=== PATIENT | female | born 1955 | race Two or more races ===

== ENCOUNTER 2025-04-11 01:28 | Emergency (ER) | payer MEDICARE, SELFPAY ==
[2025-04-11 01:28] VITALS: BP 126/63; PULSE 70; RESP 18; TEMP 37.1; O2SAT 100; BMI 28.7
--- NOTE | 2025-04-11 01:47 | EDNOTE_ITS ---
ED Abdominal Pain RME/HPI General Chief Complaint: Abdominal Pain Stated complaint: ABD PAIN X2 DAYS WITH N/V Time seen by provider: 04/11/25 02:04 Arrival date/time: 04/11/25 01:28 RME / HPI RME / HPI narrative: This section includes all my notes and documentations, including HPI, PE, and ED course. Jabier Lala MD HPI: 69yo female presents to the ED for a chief complaint of epigastric pain for the last few days. No radiation or migration. Patient reports associated nausea and vomiting. Patient denies any fever, chills, dysuria or any other associated symptoms. PSH includes and hysterectomy. No other complaints reported. ROS: All negative except as documented in HPI. Physical Exam: General: Alert and oriented. Appearance of severe malaise noted. Eyes: Conjunctivae and lids clear. ENT: No nasal congestion. Neck: Supple. Heart: RRR. Lungs: No respiratory distress. Good air movement. No rhonchi, wheezing, rales. Abdomen: Soft with epigastric tenderness. Normal bowel sounds. No distension. No rebound or guarding. Back: No CVA tenderness. Skin: Warm and dry. Neuro: Alert and oriented X 3. I reviewed all diagnostic test results. My review of the US gallbladder report is unremarkable. My review of the CT abdomen report is no acute findings. Blood tests are unremarkable except for WBC 13.6. UA showed positive leukocyte esterase and 70 WBC. COVID and Influenza are negative. At this point, diagnoses include stomach ulcer and UTI. Treatment here included Pepcid, NS, Morphine, Zofran, Pantoprazole, and Rocephin. Significant improvement noted. Recommend outpatient treatment. Based on my best medical judgment, made decision no further evaluation or treatment indicated at this time. Patient understands and agrees to the discharge instructions customized and printed, see below. Discharge instructions from Dr. Lala: ?After evaluation, your symptoms are due to stomach ulcer (see attached handout). There is no emergency such as appendicitis needing emergent surgery. ?To help heal the ulcer, take Omeprazole 40 mg every morning and Famotidine 40 mg at bedtime for a month. ?Zofran for nausea/vomiting. Clear liquid diet for 24 hours. Then slowly advance diet as tolerated. ?Avoid food and beverages that can trigger and worsen ulcers. See attached handout. --For UTI, take cefdinir to kill the germs in the urine. ?See a private doctor on 04/14/2025 for recheck and further care. Ask to review all test results and official radiology reports, to make sure you receive all necessary follow-ups and monitoring, including final urine culture results. To make sure there is no serious intra-abdominal condition, ask for help with more investigation not available here in the ER. Such as EGD or scoping the stomach, colonoscopy or scoping the colon, and referral to see nursing program coordinator. ?Seek immediate medical care with worsening or with any concerns. Jabier Lala MD Related Data Home Medications ?Medication ?Instructions ?Recorded ?Confirmed Metformin Hcl 500 mg PO BID ##60 09/29/16 Previous Rx's ?Medication ?Instructions ?Recorded cefdinir 300 mg capsule 300 mg PO BID #14 caps 04/11 famotidine 40 mg tablet 40 mg PO .bedtime #30 tabs 0 04/11/25 omeprazole 40 mg capsule,delayed 40 mg PO QDAY #30 cap s 04/11/25 release ondansetron 4 mg disintegrating 4 mg PO TID PRN nausea and 04/11/25 tablet vomiting 30 days #10 tabs Allergies Allergy/AdvReac Type Severity Reaction Status Date / Time No Known Allergies Allergy Unknown Uncoded 04/11/25 01:28 Review of Systems Review of Systems Systems Reviewed: All systems reviewed, normal except as documented Past Medical History Past Medical History CARDIAC: Positive Hypertension; Negative Congestive Heart Failure RESPIRATORY: Negative Chronic Obstructive Pulmonary Disease (COPD) GENITOURINARY: Negative Renal Disease ENT: Positive History of ENT Problems (wears eyeglasses) ENDOCRINE: Positive Diabetes Mellitus Type 2 and Hypothyroidism; Negative Diabetes Mellitus Type 1 Surgical History SURGICAL: Positive Hysterectomy and Section Social History SMOKING STATUS: Never smoker ED Exam Narrative Physical exam: As noted in HPI. Course Quality Measures none Orders Category Date Time Status Bedside COVID-19 Antigen Test NOW Care 04/11/25 02:34 Active Bedside Influenza A&B Antigen Test NOW Care 04/11/25 02:34 Completed Saline [Insert IV] NOW Care 04/11/25 02:[address] abdomen pelvis wo con Stat Exams 04/11/25 01:48 Taken US gall bladder Stat Exams 04/11/25 01:48 Taken Amylase Stat Lab 04/11/25 02:47 Completed Bilirubin,Direct Stat Lab 04/11/25 02:47 Completed CBC Stat Lab 04/11/25 02:47 Completed CMP [Comprehensive Metabolic Panel] Stat Lab 04/11/25 02:47 Completed Lipase Stat Lab 04/11/25 02:47 Completed Magnesium Stat Lab 04/11/25 02:47 Completed UA, C/S IF [Urinalysis, C/S if Indicated] Stat Lab 04/11/25 03:00 Completed Urine Culture Stat Lab 04/11/25 04:30 Received Famotidine Inj [Pepcid Inj] Med 04/11/25 02:34 Discontinued 20 mg IVP X1 ONE Morphine Inj Med 04/11/25 02:34 Discontinued 2 mg IVP X1 ONE Ondansetron Inj [Zofran Inj] Med 04/11/25 02:34 Discontinued 4 mg IV X1 ONE Pantoprazole Inj [Protonix Inj] Med 04/11/25 02:34 Discontinued 40 mg IVP X1 ONE Sodium Chloride 0.9% 1000 ml [Ns] 1,000 ml Med 04/11/25 02:34 Discontinued IV 999 mls/hr cefTRIAXone/D5w 1gm IV premix [Rocephin/D5w 1gm IV Med 04/11/25 04:16 Discontinued premix] 1 gm in 50 ml IV X1 Vital Signs Vital signs: Vital Signs Temperature 98.7 F 04/11/25 01:28 Pulse Rate 70 04/11/25 01:28 Respiratory Rate 18 04/11/25 01:28 Blood Pressure 126/63 04/11/25 01:28 Pulse Oximetry (%) 100 04/11/25 01:28 Oxygen Delivery Method Room Air 04/11/25 01:28 Abdominal Pain MDM MDM Narrative MDM Narrative:: 69yo female presents to the ED for a chief complaint of epigastric pain for the last few days. No radiation or migration. Patient reports associated nausea and vomiting. Patient denies any fever, chills, dysuria or any other associated symptoms. PSH includes and hysterectomy. No other complaints reported. Patient data External records reviewed:: [facility] previous records (Per chart review, patient has no previous ED visits or admissions to this facility.) Clinical information provided by:: patient Social determinants that could affect healthcare access:: none Patient has the following chronic illnesses:: HTN, DM How is presenting disease/condition affected by chronic disease/condition?: uneffected by Evaluation data The following diagnostics were reviewed and interpreted by me:: lab results, radiology exam(s) and EKG tracing(s) Lab and/or radiology exams considered but not ordered:: none Interpretation Summary: I reviewed all diagnostic test results. My review of the US gallbladder report is unremarkable. My review of the CT abdomen report is no acute findings. Blood tests are unremarkable except for WBC 13.6. UA showed positive leukocyte esterase and 70 WBC. COVID and Influenza are negative. Medications / Prescriptions Medications or Prescriptions considered but not ordered:: none Medication administrations:: Medication Administration History Discontinued Medications Famotidine (Famotidine Inj 10 Mg/Ml Vial 2 Ml) 20 mg IVP X1 ONE Stop: 04/11/25 02:35 Last Admin: 04/11/25 03:32 Dose: 20 mg Documented By: BD Sodium Chloride (Ns) 1,000 mls @ 999 mls/hr IV .Q1H1M ONE Stop: 04/11/25 03:34 Last Infusion: 04/11/25 04:27 Dose: Infused Documented By: Admin: 04/11/25 03:31 Dose: 999 mls/hr Documented By: BD Ceftriaxone Sodium/Dextrose (Rocephin/D5w 1gm Iv Premix) 1 gm in 50 mls @ 100 mls/hr IV X1 ONE Stop: 04/11/25 04:45 Last Admin: 04/11/25 04:32 Dose: 100 mls/hr Documented By: CP Morphine Sulfate (Morphine Sulf Inj 10 Mg/Ml Vial) 2 mg IVP X1 ONE Stop: 04/11/25 02:35 Last Admin: 04/11/25 03:31 Dose: 2 mg Documented By: BD Ondansetron HCl (Ondansetron Inj 2 Mg/Ml Inj 2 Ml) 4 mg IV X1 ONE; Protocol Stop: 04/11/25 02:35 Last Admin: 04/11/25 03:32 Dose: 4 mg Documented By: BD Pantoprazole Sodium (Pantoprazole Inj 40 Mg Vial) 40 mg IVP X1 ONE Stop: 04/11/25 02:35 Last Admin: 04/11/25 03:32 Dose: 40 mg Documented By: BD Pepcid, NS, Morphine, Zofran, Pantoprazole, Rocephin Consultations Consultation(s) initiated? (list below): No Diagnosis Differential diagnosis abdominal pain: acute appendicitis, calculus of kidney, constipation, diverticulitis, endometriosis, gastroenteritis, pancreatitis, small bowel obstruction and other (GERD, PUD, gastritis, biliary colic) Most likely diagnosis given after review of the tests above:: Stomach ulcer, UTI Admission Indicated Admission indicated?: not indicated Explain why admission is indicated or not indicated:: With significant improvement, there was no indication for admission. Admission Request Was there a request for admission?: No Disposition Plan Disposition Plan: Discharge Discharge Attestation Discharge Attestation: The patient and all family members were given an opportunity to ask questions and understood the discharge instructions. Discharge instructions specifically effects, indications for sooner follow up or return to the emergency department, and the expected course of current diagnosis. Patient condition: Stable Discharge Plan Plan Patient Disposition: HOME (Self Care) Prescriptions/Referrals Prescriptions/Med Rec: New famotidine 40 mg tablet 40 mg PO .bedtime Qty: 30 0RF omeprazole 40 mg capsule,delayed release(DR/EC) 40 mg PO QDAY Qty: 30 0RF ondansetron 4 mg tablet,disintegrating 4 mg PO TID PRN (Reason: nausea and vomiting) 30 Days Qty: 10 0RF cefdinir 300 mg capsule 300 mg PO BID Qty: 14 0RF No Action Metformin Hcl 500 MG tablet 500 mg PO BID Qty: 60 Problem List Clinical Impression: Stomach ulcer, UTI (urinary tract infection) Patient/Caregiver Discharge Instructions Discharge Activity: activity as tolerated Education Materials: ED PEPTIC ULCER vs GASTRITIS, ED CYSTITIS Female Adult Additional Instructions: Discharge instructions from Dr. Lala: ?After evaluation, your symptoms are due to stomach ulcer (see attached handout).? There is no emergency such as appendicitis needing emergent surgery. ?To help heal the ulcer, take Omeprazole 40 mg every morning and Famotidine 40 mg at bedtime for a month. ?Zofran for nausea/vomiting.? Clear liquid diet for 24 hours.? Then slowly advance diet as tolerated. ?Avoid food and beverages that can trigger and worsen ulcers.? See attached handout. --For UTI, take cefdinir to kill the germs in the urine. ?See a private doctor on 04/14/2025 for recheck and further care. Ask to review all test results and official radiology reports, to make sure you receive all necessary follow-ups and monitoring, including final urine culture results. To make sure there is no serious intra-abdominal condition, ask for help with more investigation not available here in the ER.? Such as EGD or scoping the stomach, colonoscopy or scoping the colon, and referral to see nursing program coordinator. ?Seek immediate medical care with worsening or with any concerns. Instrucciones de annette del Dr. Lala: ?Despu?s de la evaluaci?n, paulette s?ntomas se deben a vanessa ?lcera estomacal (kash folleto adjunto). No existe ninguna emergencia, jazmin vanessa apendicitis, que requiera cirug?a urgente. ?Para ayudar a cicatrizar la ?lcera, tome omeprazol 40 mg todas las ma?anas y famotidina 40 mg antes de acostarse destini un mes. ?Zofran para n?useas y v?mitos. Dieta l?quida destini 24 horas. Luego, aumente gradualmente la dieta seg?n la tolerancia. ?Evite alimentos y bebidas que puedan desencadenar y empeorar las ?lceras. Kash folleto adjunto. ?Para vanessa infecci?n urinaria, tome cefdinir para eliminar los g?rmenes en la orina. ?Consulte con un m?dico particular el 14/04/2025 para vanessa nueva revisi?n y atenci?n adicional. Solicite la revisi?n de todos los resultados de las pruebas y los informes radiol?gicos oficiales para asegurarse de recibir todos los controles y monitoreos necesarios, incluidos los resultados finales del urocultivo. Para asegurarse de que no haya vanessa afecci?n intraabdominal grave, solicite ayuda con otras pruebas que no est?n disponibles en urgencias, jazmin vanessa endoscopia estomacal (EGD) o vanessa endoscopia g?strica, vanessa colonoscopia o vanessa endoscopia de colon, y derivaci?n a un gastroenter?logo. ?Busque atenci?n m?dica inmediata si presenta empeoramiento o si tiene alguna inquietud. Print Language: [employer] Stand Alone Forms: Olivia Award Info., Patient Portal Info Letter
--- NOTE | 2025-04-11 01:48 | XR_ITS ---
Examination: CT abdomen and pelvis without contrast. Coronal 3-D reconstructions. Sagittal 2-D reconstructions. Date and time of exam:April 11, 2025 at 0237 hours INDICATIONS: Onset abdominal pain today COMPARISON: June 06, 2024 CTDI: vol (mGy): 8.69 DLP: (mGycm): 430 Technique: Axial images of the abdomen have been obtained, 3 mm slice thickness Intravenous contrast material has not been administered. Low dose protocols were performed. One or more of the following dose reduction techniques were used; automated exposure control, adjustment of the mA and/or KV according to patient size, use of iterative reconstruction technique. Findings: Multiple subcentimeter pulmonary nodules No focal liver or splenic lesions No gallstones No pancreatic mass No renal or ureteral calculi, no hydronephrosis Very minimal probable inflammatory change about the superior mesenteric artery Aortic calcification no aneurysmal dilatation No bowel obstruction No pericecal inflammatory changes No diverticulitis Urinary bladder intact Advanced degenerative disc disease L4-L5, L5-S1 IMPRESSION: Multiple noncalcified pulmonary nodules, recommend CT chest without contrast follow-up Normal appendix No bowel obstruction, no diverticulitis
--- NOTE | 2025-04-11 01:48 | XR_ITS ---
Examination: Abdomen sonogram, Limited Date and time of exam: April 11, 2025 0206 hours INDICATIONS: Abdominal pain beginning 2 days ago with nausea vomiting Technique: Real-time walker scale transabdominal sonographic images of the upper abdomen obtained. Findings: Normal gallbladder Normal common bile duct 0.3 cm Pancreatic head 2.0 cm Liver 12.6 cm no focal liver lesions Normal hepatopedal portal venous flow Patent IVC IMPRESSION: Negative study
[2025-04-11 03:02] LABS: Basophils % (Auto) 0 % (0-2.5); Eosinophils % (Auto) 0 % (0-10); Hematocrit 37.7 % (36.0-46.0); Hemoglobin 13.6 g/dL (12.0-16.0); Immature Granulocytes % (Auto) 0 % (0-0); Immature Granulocytes Auto 0.05 Thou/mm3 (0.00-0.00); Lymphocytes # (Auto) 1.6 Thou/mm3 (1.0-4.8); Lymphocytes % (Auto) 12 % (10-50); Mean Corpuscular HGB Conc 36.1 g/dl (31.0-37.0); Mean Corpuscular Hemoglobin 30.5 pg (25.0-35.0); Mean Corpuscular Volume 85 fL (80-100); Monocytes # (Auto) 0.6 Thou/mm3 (0.0-0.8); Monocytes % (Auto) 4 % (0-12); Neutrophils # (Auto) 11.3 Thou/mm3 (1.8-7.7); Neutrophils % (Auto) 83 % (37-80); Nucleated Red Blood Cell % 0 /100 WBC (0); Platelet Count 266 Thou/mm3 (140-440); Red Blood Count 4.46 Miln/mm3 (4.00-5.20); White Blood Count 13.6 Thou/mm3 (3.6-11.0)
[2025-04-11 03:04] LABS: Collection Type, Urine Clean Catch
[2025-04-11 03:19] LABS: Bilirubin,Urine Negative (Negative); Blood,Urine Negative (Negative); Clarity,Urine Turbid (Clear/Hazy); Color,Urine Yellow (Lt Yel-Yel); Culture Indicated,Urine Contaminated; Glucose, Urine Negative (Negative); Ketones,Urine Negative (Negative); Leukocyte Esterase,Urine Positive (Negative); Nitrite,Urine Negative (Negative); PH,Urine 5.5 (5.0-7.0); Protein,Urine Trace (Neg - Trace); RBC,Urine 5 /hpf (0-3); Specific Gravity,Urine 1.019 (1.001-1.035); Squamous Epithelial Cell,Urine 12 /hpf (0-5); Urobilinogen,Urine Negative mg/dL (0.0-1.0); WBC,Urine 70 /hpf (0-5)
[2025-04-11 03:21] LABS: Alanine Aminotransferase 16 U/L (10-49); Albumin, Serum 4.2 gm/dL (3.4-4.8); Albumin/Globulin Ratio 1.4 (1.2-2.2); Alkaline Phosphatase 113 U/L (46-116); Amylase 59 U/L (30-118); Anion Gap 10 (7-16); Aspartate Amino Transferase 22 U/L (0-34); BUN/Creatinine Ratio 16 Ratio (12-20); Bilirubin,Direct 0.1 mg/dL (0.0-0.3); Bilirubin,Total 0.6 mg/dL (0.3-1.2); Blood Urea Nitrogen 16 mg/dL (9-23); Carbon Dioxide 27.2 mMol/L (20.0-31.0); Chloride 102 mMol/L (98-107); Estimated Creatinine Clearance 48.4 mL/min (>60); Glucose 147 mg/dL (74-106); Lipase 33 U/L (12-53); Magnesium 1.8 mg/dL (1.6-2.6); Osmolality,Calculated 281 (275-295); Potassium 3.8 mMol/L (3.4-5.1); Sodium 139 mMol/L (136-145); Total Protein 7.2 gm/dL (5.7-8.2); eGFR > 60 See Note
[2025-04-11] MEDS: SODIUM CHLORIDE 0.9% 1000 ML 1,000 ML 999 ML IV (03:31)
[2025-04-11] MEDS: MORPHINE SULF INJ 10 MG/ML VIAL 2 MG IVP (03:31)
[2025-04-11] MEDS: PANTOPRAZOLE INJ 40 MG VIAL IVP (03:32)
[2025-04-11] MEDS: ONDANSETRON INJ 2 MG/ML INJ 2 ML 4 MG IV (03:32)
[2025-04-11] MEDS: FAMOTIDINE INJ 10 MG/ML VIAL 2 ML 20 MG IVP (03:32)
[2025-04-11 03:38] VITALS: BP 165/70; PULSE 66; RESP 12; TEMP 36.4; O2SAT 97
--- NOTE | 2025-04-11 04:00 | PRELIM_ITS ---
Gallbladder ultrasound. April 11, 2025 at 0206 hours. Clinical history: RUQ tenderness. Comparison: No prior study is available for comparison. Findings: The visualized liver is normal in echogenicity without mass or ductal dilatation. The main portal and hepatic veins are patent with flow. No gallbladder calculus, wall thickening or pericholecystic fluid is identified. The common duct is normal in caliber at 3 mm. The pancreas is unremarkable to the extent visualized. No free fluid is demonstrated on the submitted images. The inferior vena cava is unremarkable to the extent visualized. Impression: No sonographic evidence of cholelithiasis, acute cholecystitis or biliary obstruction. Report Electronically Signed By: Theron Child 04/11/2025 3:59:48 AM [EST]
--- NOTE | 2025-04-11 04:28 | PRELIM_ITS ---
CT scan of the abdomen and pelvis without intravenous contrast (axial sections with sagittal and coronal reformats) April 11, 2025 0237 hours Clinical History: ABD PAIN Comparison: 04/11/2025 Findings: Small nodular is noted in the right lower lobe measuring 4mm. Subpleural nodule is noted in the right middle lobe (image 4, series 8). A 4.5mm nodule is noted in the periphery of the left lower lobe. A 3.5mm perifissural nodule in the right middle lobe. The liver, gallbladder, pancreas, spleen, kidneys and adrenals are unremarkable on this noncontrast study. No evidence of bowel obstruction. The appendix is within normal limits (images 61-63, series 4). There are occasional colonic diverticula without evidence of diverticulitis. There is no mesenteric or retroperitoneal adenopathy. There is mild fat stranding around the proximal celiac and superior mesenteric artery. The urinary bladder is incompletely distended. The uterus appears small, may be related to subtotal hysterectomy. There is no free fluid or free air. Small hemangioma in the L3 vertebral body. Mild degenerative changes are identified in the spine. There is minimal anterolisthesis of L4 on L5. Impression: No evidence of bowel obstruction, free air or abscess. Mild fat stranding around the proximal celiac and superior mesenteric artery, may be nonspecific. The possibility of vasculitis cannot be excluded. Recommend clinical correlation. Multiple pulmonary nodules. Recommend CT follow-up at 6-12 months. Other findings as described above. Report Electronically Signed By: Theron Child 04/11/2025 4:27:33 AM [EST]
[2025-04-11] MEDS: cefTRIAXone/D5w 1gm IV premix 1 GM/50 ML BAG IV (04:32)
[2025-04-11 05:00] VITALS: BP 164/65; PULSE 88; RESP 16; TEMP 36.9; O2SAT 95
== END 2025-04-11 05:01 | disposition home or self-care (01) ==
LOC: SERX 04:50
PROVIDERS: Emergency Provider Emergency Medicine; PCP Physician Assistant
DX: K25.9 Gastric ulcer, unspecified as acute or chronic, without hemorrhage or perforation (principal); N39.0 Urinary tract infection, site not specified
CPT/HCPCS: 36415; 74176; 76705; 80053; 81001; 82150; 82248; 83690; 83735; 85025; 87086; 87400; 87811; 96361; 96374; 96375; 99284; J0696; J2270; J2405; J2470; J3490; J7030

== ENCOUNTER → 2025-08-20 | Outpatient (CLI) | payer MEDICARE, SELFPAY ==
--- NOTE | 2025-08-20 10:00 | XR_ITS ---
Examination: Screening digital mammography, bilateral Computer aided detection 3-D breast Tomosynthesis, bilateral Date and time of exam: August 20, 2025 1013 hours, compared to mammograms dating to April 01, 2019 Indication: Screening Technique: Nonmagnified MLO, CC views of the breasts to been obtained, reconstructed from 3-D Tomosynthesis images. R2 computer aided detection program utilized for evaluation of suspicious masses and/or abnormal calcifications. 3-D Tomosynthesis images obtained. Findings: Scattered areas of fibroglandular density. Dystrophic calcification upper right breast mid depth No interval suspicious masses Impression: BI-RADS category II: Benign Findings. Recommend 1 year follow-up mammogram.
== END | disposition home or self-care (01) ==
PROVIDERS: PCP Physician Assistant; Referring Provider Physician Assistant; Visit Provider Physician Assistant
DX: Z12.31 Encounter for screening mammogram for malignant neoplasm of breast (principal); R92.323 Mammographic fibroglandular density, bilateral breasts; R92.1 Mammographic calcification found on diagnostic imaging of breast
CPT/HCPCS: 77063; 77067

== ENCOUNTER → 2025-10-03 | Outpatient (CLI) | payer MEDICARE, SELFPAY ==
--- NOTE | 2025-10-03 14:00 | XR_ITS ---
Examination: Duplex scan of the lower extremity, unilateral left Date and time of exam: 10/03/2025 at 1:48 p.m. INDICATION: Left lower extremity swelling and pain, intermittent for 1 year COMPARISON: None Technique: Duplex scan of the extremity veins using B-mode/grayscale imaging and Doppler spectral analysis and color flow Attention is directed to internal echogenicity, compression and augmentation involving these veins, color flow assessment, spectral analysis Findings: Major deep venous structures in the extremity demonstrate normal course and caliber. There is no evidence of deep vein thrombosis. Normal color flow and spectral analysis Impression: Negative for DVT or superficial thrombophlebitis in the left lower extremity.
== END | disposition home or self-care (01) ==
LOC: CDIM 13:38
PROVIDERS: Referring Provider Physician Assistant; Visit Provider Physician Assistant
DX: I83.892 Varicose veins of left lower extremity with other complications (principal)
CPT/HCPCS: 93971

== ENCOUNTER 2025-11-04 08:55 | Day surgery (SDC) | payer MEDICARE, SELFPAY ==
[2025-11-03 12:37] VITALS: BMI 28.5
[2025-11-04] VITALS (7 sets, daily range): BP systolic 137–179; BP diastolic 66–84; PULSE 61–71; RESP 12–23; TEMP 36.1–37; O2SAT 94–100; BMI 28.9
[2025-11-04] MEDS: RINGERS LACTATED 1000 ML 1,000 ML 125 ML IV (10:54)
[2025-11-04] MEDS: BENZOCAINE 20% (Hurricaine) SPRAY 1 DOSE TOP (10:54)
[2025-11-04] MEDS: fentaNYL CIT INJ 50 mCg/ML AMP 2ML (ASD USE ONLY) IVP (10:57)
[2025-11-04] MEDS: MIDAZOLAM INJ 1 MG/ML VIAL 2 ML (ASD USE ONLY) 2 MG IVP (10:57)
== END 2025-11-04 12:01 | disposition home or self-care (01) ==
PROVIDERS: PCP Physician Assistant; Referring Provider Internal Medicine Gastroenterology; Visit Provider Internal Medicine Gastroenterology
PROC: (CPT 43239; principal; 2025-11-04 10:45)
DX: K29.50 Unspecified chronic gastritis without bleeding (principal); K44.9 Diaphragmatic hernia without obstruction or gangrene; E03.9 Hypothyroidism, unspecified; E11.9 Type 2 diabetes mellitus without complications; I10 Essential (primary) hypertension
CPT/HCPCS: 43239; A4649; J1200; J2250; J3010; J7120; A9270

== ENCOUNTER 2025-11-06 07:00 | Day surgery (SDC) | payer MEDICARE, SELFPAY ==
[2025-11-05 10:08] VITALS: BMI 28.5
[2025-11-06] VITALS (8 sets, daily range): BP systolic 119–162; BP diastolic 51–70; PULSE 62–83; RESP 12–18; TEMP 36.3; O2SAT 94–100; BMI 28.0
[2025-11-06] MEDS: fentaNYL CIT INJ 50 mCg/ML AMP 2ML (ASD USE ONLY) IVP (08:43)
[2025-11-06] MEDS: MIDAZOLAM INJ 1 MG/ML VIAL 2 ML (ASD USE ONLY) 2 MG IVP (08:43)
[2025-11-06] MEDS: RINGERS LACTATED 500 ML 500 ML 20 ML IV (08:48)
--- NOTE | 2025-11-06 09:20 | SUR.PHASEII ---
0840 PATIENT INTO RECOVERY ROOM WITH NO DISTRESS NOTED, V/S STABLE, PATIENT ABLE TO REPOSITION SELF FOR COMFORT. PATIENT PASSING LARGE AMOUNTS OF FLATUS. REPORT RECEIVED FROM CRISTINE ROCHA. [id number] PATIENT V/S REMAIN STABLE, PATIENT DRINKING WATER, PATIENT DENIES PAIN OR NAUSEA AT THIS TIME.
--- NOTE | 2025-11-06 09:36 | SUR.PHASEII ---
0930 PATIENT AMBULATES TO BATHROOM WITH MINIMAL ASSISTANCE NEEDED. PATIENT CONTINUES TO PASS FLATUS. 0935 DISCHARGE INSTRUCTIONS GIVEN BY THONG RN/CERTIFIED MANAGER PERFORMANCE TO PATIENT AND PATIENT'S ADINA.
== END 2025-11-06 09:45 | disposition home or self-care (01) ==
PROVIDERS: PCP Physician Assistant; Referring Provider Internal Medicine Gastroenterology; Visit Provider Internal Medicine Gastroenterology
PROC: 0DBE8ZX Excision of Large Intestine, Via Natural or Artificial Opening Endoscopic, Diagnostic (ICD-10-PCS; CPT 45380; principal; 2025-11-06 08:15)
DX: K52.9 Noninfective gastroenteritis and colitis, unspecified (principal); K64.9 Unspecified hemorrhoids; K57.30 Diverticulosis of large intestine without perforation or abscess without bleeding; I10 Essential (primary) hypertension; E11.9 Type 2 diabetes mellitus without complications; E03.9 Hypothyroidism, unspecified
CPT/HCPCS: 45380; A4649; J2250; J3010; J7120

== ENCOUNTER → 2025-11-17 | Outpatient (CLI) | payer MEDICARE, SELFPAY ==
--- NOTE | 2025-11-17 15:48 | XR_ITS ---
EXAMINATION: PA lateral chest 2 views TECHNIQUE: Upright PA lateral chest 2 views Date and time: November 17, 2025, 1606 hours INDICATIONS: Productive cough 1 week. FINDINGS: Normal heart size Lungs are clear. Osseous structures are intact IMPRESSION: No active disease
== END | disposition home or self-care (01) ==
LOC: CDIM 15:32
PROVIDERS: PCP Physician Assistant
DX: R05.8 Other specified cough (principal)
CPT/HCPCS: 71046